=== PATIENT | female | born 1995 | race Caucasian/White ===

== ENCOUNTER 2017-05-25 02:21 | Emergency (ER) | payer BC, MEDICAID ==
[~2017-05-25] VITALS: Ht 157.5 cm; Wt 107.0 kg
[~2017-05-25 02:21] MED LIST: [UNRECOGNIZED DRUG - CODE] PO
[2017-05-25] MEDS ORDERED: IBUPROFEN 600MG TABLET PO ONE (04:15)
[2017-05-25 05:04] LABS: *AMPHETAMINES SCREEN URINE NEGATIVE (NEGATIVE); *BARBITURATES SCREEN URINE NEGATIVE (NEGATIVE); *COCAINE SCREEN URINE NEGATIVE (NEGATIVE); METHADONE URINE SCREEN NEGATIVE (NEGATIVE); OPIATES URINE SCREEN NEGATIVE (NEGATIVE); PHENCYCLIDINE URINE SCREEN NEGATIVE (NEGATIVE)
[2017-05-25 05:05] LABS: *BENZODIAZEPINES SCREEN URINE PRESUMTIVE POSITIVE (NEGATIVE); CANNABINOID URINE SCREEN PRESUMTIVE POSITIVE (NEGATIVE)
[2017-05-25 07:45] VITALS: BP 105/55
== END 2017-05-25 08:14 | disposition home or self-care (01) ==
LOC: ER 05:02
DX: S00.83XA Contusion of other part of head, initial encounter (principal); S13.4XXA Sprain of ligaments of cervical spine, initial encounter; V48.5XXA Car driver injured in noncollision transport accident in traffic accident, initial encounter; Y92.411 Interstate highway as the place of occurrence of the external cause; Y93.89 Activity, other specified; F12.10 Cannabis abuse, uncomplicated; Z88.6 Allergy status to analgesic agent
CPT/HCPCS: 36415; 70450; 72125; 80305; 81025; 99285; G0482

== ENCOUNTER 2017-05-26 17:55 | Emergency (ER) | payer BC, MEDICAID ==
[~2017-05-26] VITALS: Ht 157.5 cm; Wt 108.0 kg
[2017-05-26] MEDS ORDERED: SODIUM CHLORIDE 0.9% 1,000 ML IV ONE (19:01)
[2017-05-26 19:16] LABS: BASOPHILS % 0.5 % (0.0-2.0); HEMATOCRIT. 40.3 % (36.0-48.0); HEMOGLOBIN. 13.1 g/dL (12.0-16.0); LYMPHOCYTES % 24.8 % (20.0-50.0); MEAN CORPUSCULAR HEMOGLOBIN 26.8 pg (28.0-32.0); MEAN CORPUSCULAR VOLUME 82.2 fL (81.0-99.0); MEAN PLATELET VOLUME 9.9 fl (7.4-10.4); MONOCYTES % 7.3 % (2.0-8.0); NEUTROPHILS % 64.4 % (40.0-76.0); PLATELET 228 x1000/uL (130-400)
[2017-05-26 19:20] LABS: CLARITY URINE CLEAR (CLEAR); COLOR URINE YELLOW (YELLOW); GLUCOSE URINE NEGATIVE (NEGATIVE); KETONES URINE NEGATIVE (NEGATIVE); LEUKOCYTE ESTERASE URINE NEGATIVE (NEGATIVE); NITRITE URINE NEGATIVE (NEGATIVE); OCCULT BLOOD URINE 3+ (NEGATIVE); PROTEIN URINE NEGATIVE (NEGATIVE); SPECIFIC GRAVITY URINE 1.018 (1.005-1.030); UROBILINOGEN URINE 0.2 E.U./dL (0.2-1.0)
[2017-05-26 19:28] LABS: HCG SCREEN NEGATIVE
[2017-05-26 19:29] LABS: CARBON DIOXIDE 27 mEq/L (21-32); CHLORIDE 107 mEq/L (98-107); ETHANOL BLOOD < 10 mg/dL
[2017-05-26 19:33] LABS: *AMPHETAMINES SCREEN URINE NEGATIVE (NEGATIVE); *BARBITURATES SCREEN URINE NEGATIVE (NEGATIVE); *COCAINE SCREEN URINE NEGATIVE (NEGATIVE); METHADONE URINE SCREEN NEGATIVE (NEGATIVE); OPIATES URINE SCREEN NEGATIVE (NEGATIVE); PHENCYCLIDINE URINE SCREEN NEGATIVE (NEGATIVE)
[2017-05-26 19:33] LABS: AMMONIA 43 uMol/L (<32)
[2017-05-26 19:34] LABS: *BENZODIAZEPINES SCREEN URINE PRESUMTIVE POSITIVE (NEGATIVE)
[2017-05-26 19:35] LABS: CANNABINOID URINE SCREEN PRESUMTIVE POSITIVE (NEGATIVE)
[2017-05-27 12:00] VITALS: BP 117/63
== END 2017-05-27 13:46 | disposition home or self-care (01) ==
LOC: ER 17:55
DX: T40.7X2A Poisoning by cannabis (derivatives), intentional self-harm, initial encounter (principal); T42.4X2A Poisoning by benzodiazepines, intentional self-harm, initial encounter; F12.10 Cannabis abuse, uncomplicated; Z88.6 Allergy status to analgesic agent; Y92.89 Other specified places as the place of occurrence of the external cause
CPT/HCPCS: 36415; 80053; 80305; 80307; 80329; 81001; 82140; 82962; 84703; 85025; 93005; 96360; 96361; 99285; G0482; J7030; Z7610

== ENCOUNTER 2017-12-18 09:18 | Emergency (ER) | payer BC, MEDICAID ==
[~2017-12-18] VITALS: Ht 157.5 cm; Wt 105.0 kg
[~2017-12-18 09:18] MED LIST changes: +PHEN-910 PO; -[UNRECOGNIZED DRUG - CODE] PO
[2017-12-18] MEDS ORDERED: BACITRACIN ZINC OINT UDPKT TOP ONE (11:30)
[2017-12-18 12:45] VITALS: BP 119/63
== END 2017-12-18 12:46 | disposition home or self-care (01) ==
LOC: ER 09:36
DX: S93.401A Sprain of unspecified ligament of right ankle, initial encounter (principal); S80.211A Abrasion, right knee, initial encounter; S80.212A Abrasion, left knee, initial encounter; F12.10 Cannabis abuse, uncomplicated; Z88.6 Allergy status to analgesic agent; W10.1XXA Fall (on)(from) sidewalk curb, initial encounter; Y93.89 Activity, other specified; Y92.89 Other specified places as the place of occurrence of the external cause; Y99.8 Other external cause status
CPT/HCPCS: 73610; 81025; 99284

== ENCOUNTER 2018-02-07 15:01 | Emergency (ER) | payer BC, MEDICAID ==
[~2018-02-07] VITALS: Ht 160 cm; Wt 91.0 kg
[2018-02-07] MEDS ORDERED: ACETAMINOPHEN 500MG TABLET PO ONE (18:00)
[2018-02-07 19:07] VITALS: BP 132/82
== END 2018-02-07 19:50 | disposition home or self-care (01) ==
LOC: ER 15:33
DX: S06.9X9A Unspecified intracranial injury with loss of consciousness of unspecified duration, initial encounter (principal); S09.93XA Unspecified injury of face, initial encounter; Y04.2XXA Assault by strike against or bumped into by another person, initial encounter; T71.193A Asphyxiation due to mechanical threat to breathing due to other causes, assault, initial encounter; Y93.89 Activity, other specified; Y92.410 Unspecified street and highway as the place of occurrence of the external cause; R03.0 Elevated blood-pressure reading, without diagnosis of hypertension; F17.210 Nicotine dependence, cigarettes, uncomplicated; Z88.6 Allergy status to analgesic agent
CPT/HCPCS: 70450; 70486; 70490; 99284

== ENCOUNTER 2018-10-17 19:25 | Emergency (ER) | payer BC, MEDICAID ==
[~2018-10-17] VITALS: Ht 157.5 cm; Wt 102.0 kg
[2018-10-17] MEDS ORDERED: IBUPROFEN 600MG TABLET PO STA (22:23)
[2018-10-18] MEDS ORDERED: ACETAMINOPHEN WITH CODEINE 300/30MG TABLET PO ONE (00:30)
[2018-10-18 00:39] VITALS: BP 125/74
== END 2018-10-18 00:55 | disposition home or self-care (01) ==
LOC: ER 19:25
DX: S20.219A Contusion of unspecified front wall of thorax, initial encounter (principal); S09.8XXA Other specified injuries of head, initial encounter; F12.10 Cannabis abuse, uncomplicated; F14.10 Cocaine abuse, uncomplicated; V89.2XXA Person injured in unspecified motor-vehicle accident, traffic, initial encounter; Y93.89 Activity, other specified; Y92.89 Other specified places as the place of occurrence of the external cause; Y99.8 Other external cause status
CPT/HCPCS: 71045; 81025; 99284

== ENCOUNTER 2022-03-19 15:40 | Inpatient (IN) | payer BC, MEDICAID ==
[~2022-03-19] VITALS: Ht 157.5 cm; Wt 115.7 kg
[2022-03-19] MEDS ORDERED: MORPHINE SULFATE 4 MG/ML CPJ (NOT FOR IM USE) IV STA (16:13)
[2022-03-19] MEDS ORDERED: ONDANSETRON HCL 4MG/2ML INJ IV STA (16:13)
[2022-03-19] MEDS ORDERED: SODIUM CHLORIDE 0.9% 1,000 ML IV ONE (16:15)
[2022-03-19 16:48] LABS: BASOPHILS % 0.6 % (0.0-2.0); EOSINOPHILS % 0.3 % (0.0-5.0); HEMATOCRIT. 33.9 % (36.0-48.0); HEMOGLOBIN. 10.9 g/dL (12.0-16.0); LYMPHOCYTES % 12.3 % (20.0-50.0); MEAN CORPUSCULAR HEMOGLOBIN 27.1 pg (28.0-32.0); MEAN CORPUSCULAR VOLUME 84.3 fL (81.0-99.0); MEAN PLATELET VOLUME 9.5 fl (7.4-10.4); MONOCYTES % 8.2 % (2.0-8.0); NEUTROPHILS % 78.6 % (40.0-76.0); PLATELET 245 x1000/uL (130-400); RED BLOOD CELL COUNT 4.02 mill/uL (4.2-5.4); RED CELL DISTRIBUTION WIDTH 13.7 % (11.6-14.6)
[2022-03-19 17:05] LABS: CHLORIDE 104 mEq/L (98-107); HCG SCREEN NEGATIVE
[2022-03-19] MEDS ORDERED: KETOROLAC 15MG/ML VIAL IV ONE (19:00)
[2022-03-19] MEDS ORDERED: HYDROMORPHONE HCL/PF 2MG/ML CPJ IV ONE (20:00)
[2022-03-19] MEDS ORDERED: IOHEXOL-300 100 ML BOTTLE ONE (20:33)
[2022-03-19 20:35] LABS: CLARITY URINE CLEAR (CLEAR); COLOR URINE DARK YELLOW (YELLOW); KETONES URINE TRACE (NEGATIVE); LEUKOCYTE ESTERASE URINE NEGATIVE (NEGATIVE); NITRITE URINE NEGATIVE (NEGATIVE); OCCULT BLOOD URINE NEGATIVE (NEGATIVE); PROTEIN URINE NEGATIVE (NEGATIVE); SPECIFIC GRAVITY URINE 1.024 (1.005-1.030)
[2022-03-19] MEDS ORDERED: CEFTRIAXONE 1 G PREMIX 50 ML IV ONE (22:45)
[2022-03-19] MEDS ORDERED: MORPHINE SULFATE 4 MG/ML CPJ (NOT FOR IM USE) IV ONE (22:45)
[2022-03-19] MEDS ORDERED: AZITHROMYCIN 500MG/250ML 250 ML IV ONE (22:45)
[2022-03-19] MEDS ORDERED: MAGNESIUM/ALUMINUM HYDROXIDE/SIMETHICONE 30ML UDC PO PRN (23:00)
[2022-03-19] MEDS ORDERED: ACETAMINOPHEN 325MG TABLET PO PRN ×2 (23:00)
[2022-03-19] MEDS ORDERED: DOCUSATE SODIUM 100MG CAPSULE PO PRN (23:00)
[2022-03-19] MEDS ORDERED: ENOXAPARIN 40MG/0.4ML SYR SUBCUT SCH (23:00)
[2022-03-19] MEDS ORDERED: IPRATROPIUM/ALBUTEROL 0.5-3(2.5)MG/3ML NEB NEB PRN (23:00)
[2022-03-19] MEDS ORDERED: GUAIFENESIN 200MG/10ML SUGAR FREE UDC PO PRN (23:00)
[2022-03-19] MEDS ORDERED: CLONIDINE 0.1MG TABLET PO PRN (23:00)
[2022-03-19] MEDS ORDERED: LEVOFLOXACIN 750MG PREMIX 150 ML IV SCH (23:15)
[2022-03-20] MEDS ORDERED: SODIUM CHLORIDE 0.9% 1000ML BAG (SEPSIS BOLUS) IV ONE (00:15)
[2022-03-20 00:26] LABS: ETHANOL BLOOD < 10 mg/dL; T4 FREE 1.16 ng/dL (0.76-1.46)
[2022-03-20 02:12] LABS: VITAMIN B12 SERUM 238 pg/mL (211-911)
[2022-03-20 03:45] VITALS: BP 111/63
[2022-03-20] MEDS: MORPHINE SULFATE 2 MG/ML CPJ (NOT FOR IM USE) IV PRN ×2 (04:23→20:33)
[2022-03-20 07:19] LABS: BASOPHILS % 0.2 % (0.0-2.0); EOSINOPHILS % 0.7 % (0.0-5.0); HEMATOCRIT. 29.8 % (36.0-48.0); HEMOGLOBIN. 9.7 g/dL (12.0-16.0); LYMPHOCYTES % 12.4 % (20.0-50.0); MEAN CORPUSCULAR HEMOGLOBIN 27.1 pg (28.0-32.0); MEAN CORPUSCULAR VOLUME 82.8 fL (81.0-99.0); MEAN PLATELET VOLUME 9.4 fl (7.4-10.4); NEUTROPHILS % 78.7 % (40.0-76.0); PLATELET 234 x1000/uL (130-400); RED CELL DISTRIBUTION WIDTH 13.3 % (11.6-14.6)
[2022-03-20 07:50] LABS: CHLORIDE 103 mEq/L (98-107)
[2022-03-20 07:59] LABS: PHOSPHORUS 3.1 mg/dL (2.5-4.9)
[2022-03-20 08:00] VITALS: BP 116/59
[2022-03-20] MEDS: FAMOTIDINE 20MG TABLET PO SCH ×2 (09:16→20:34)
[2022-03-20] MEDS: ENOXAPARIN 30MG/0.3ML SYR SUBCUT SCH ×2 (09:16→20:34)
[2022-03-20] MEDS: KETOROLAC 15MG/ML VIAL IV PRN (09:17)
[2022-03-20 12:00] VITALS: BP 119/68
[2022-03-20 13:23] LABS: *AMPHETAMINES SCREEN URINE NEGATIVE (NEGATIVE); *BARBITURATES SCREEN URINE NEGATIVE (NEGATIVE); *BENZODIAZEPINES SCREEN URINE NEGATIVE (NEGATIVE); *COCAINE SCREEN URINE NEGATIVE (NEGATIVE); METHADONE URINE SCREEN NEGATIVE (NEGATIVE); PHENCYCLIDINE URINE SCREEN NEGATIVE (NEGATIVE)
[2022-03-20 13:30] LABS: CANNABINOID URINE SCREEN PRESUMTIVE POSITIVE (NEGATIVE); OPIATES URINE SCREEN PRESUMTIVE POSITIVE (NEGATIVE)
[2022-03-20] MEDS: HYDROCODONE/ACETAMINOPHEN 10/325MG TABLET PO PRN ×2 (17:26→22:17)
[2022-03-20 20:00] VITALS: BP 121/67
[2022-03-20] MEDS: ZOLPIDEM TARTRATE 5MG TABLET PO PRN (22:17)
[2022-03-21] VITALS: BP_SYST 131; BP_SYST 146; BP_DIAS 67; BP_DIAS 83
[2022-03-21] MEDS: LEVOFLOXACIN 750MG PREMIX 150 ML IV SCH (03:26)
[2022-03-21] MEDS: MORPHINE SULFATE 2 MG/ML CPJ (NOT FOR IM USE) IV PRN ×4 (03:26→20:19)
[2022-03-21 04:00] VITALS: BP 123/71
[2022-03-21] MEDS: HYDROCODONE/ACETAMINOPHEN 10/325MG TABLET PO PRN ×3 (06:52→23:28)
[2022-03-21 09:00] VITALS: BP 127/67
[2022-03-21] MEDS: FAMOTIDINE 20MG TABLET PO SCH ×2 (09:28→20:18)
[2022-03-21] MEDS: ENOXAPARIN 30MG/0.3ML SYR SUBCUT SCH ×2 (09:30→20:19)
[2022-03-21 12:00] VITALS: BP 120/66
[2022-03-21 16:00] VITALS: BP 123/69
[2022-03-21 20:00] VITALS: BP 135/84
[2022-03-21] MEDS: ONDANSETRON HCL 4MG/2ML INJ IV PRN (20:18)
[2022-03-21] MEDS: KETOROLAC 15MG/ML VIAL IV PRN (23:16)
[2022-03-21] MEDS: ZOLPIDEM TARTRATE 5MG TABLET PO PRN (23:28)
[2022-03-22] VITALS (7 sets, daily range): BP systolic 116–136; BP diastolic 65–88
[2022-03-22] MEDS: LEVOFLOXACIN 750MG PREMIX 150 ML IV SCH (03:00)
[2022-03-22] MEDS: HYDROCODONE/ACETAMINOPHEN 10/325MG TABLET PO PRN ×2 (08:43→20:27)
[2022-03-22] MEDS: ENOXAPARIN 30MG/0.3ML SYR SUBCUT SCH ×2 (08:44→20:55)
[2022-03-22] MEDS: FAMOTIDINE 20MG TABLET PO SCH ×2 (08:44→20:54)
[2022-03-22] MEDS ORDERED: NALOXONE HCL 0.4MG/ML VIAL IV PRN (09:15)
[2022-03-22] MEDS: MORPHINE SULFATE 2 MG/ML CPJ (NOT FOR IM USE) IV PRN ×2 (11:27→16:53)
[2022-03-22] MEDS: ZOLPIDEM TARTRATE 5MG TABLET PO PRN (22:09)
[2022-03-22] MEDS: KETOROLAC 15MG/ML VIAL IV PRN (22:10)
[2022-03-23] VITALS: BP 115/59
[2022-03-23] MEDS ORDERED: LEVOFLOXACIN 750MG PREMIX 150 ML IV SCH (02:00)
[2022-03-23] MEDS: ONDANSETRON HCL 4MG/2ML INJ IV PRN (03:46)
[2022-03-23 04:00] VITALS: BP 110/65
[2022-03-23 08:00] VITALS: BP 113/58
[2022-03-23] MEDS: FAMOTIDINE 20MG TABLET PO SCH (08:20)
[2022-03-23] MEDS: MORPHINE SULFATE 2 MG/ML CPJ (NOT FOR IM USE) IV PRN (08:21)
[2022-03-23] MEDS: ENOXAPARIN 30MG/0.3ML SYR SUBCUT SCH (08:22)
[2022-03-23] MEDS: HYDROCODONE/ACETAMINOPHEN 10/325MG TABLET PO PRN (10:09)
[2022-03-23 10:44] VITALS: BP 113/58
== END 2022-03-23 11:40 | disposition short-term general hospital (02) | DRG 720 ==
LOC: ER 15:40 → MICUSO 22:33 → 8WST 03-20 02:19
PROVIDERS: ADMIT Internal Medicine; ATTEND Internal Medicine
DX: A41.9 Sepsis, unspecified organism (principal); J18.9 Pneumonia, unspecified organism; D63.8 Anemia in other chronic diseases classified elsewhere; S42.201A Unspecified fracture of upper end of right humerus, initial encounter for closed fracture; S82.51XA Displaced fracture of medial malleolus of right tibia, initial encounter for closed fracture; E66.01 Morbid (severe) obesity due to excess calories; Z79.899 Other long term (current) drug therapy; V44.5XXA Car driver injured in collision with heavy transport vehicle or bus in traffic accident, initial encounter; Y93.89 Activity, other specified; Y99.8 Other external cause status; Y92.410 Unspecified street and highway as the place of occurrence of the external cause; Z68.42 Body mass index [BMI] 45.0-49.9, adult; Z71.3 Dietary counseling and surveillance; S82.401A Unspecified fracture of shaft of right fibula, initial encounter for closed fracture
CPT/HCPCS: 36415; 71045; 71260; 73060; 73200; 73610; 80053; 80305; 80320; 81003; 82607; 83036; 83605; 83735; 83880; 84100; 84439; 84443; 84484; 84703; 85025; 93005; 93306; 93970; 97162; 99291; G0378; J0456; J0696; J1170; J1650; J1885; J1956; J2270; J2405; J7030; L3670; Q9967; G0480